=== PATIENT | male | born 1975 | race African-American/Black ===

== ENCOUNTER 2016-09-04 12:16 | Outpatient (CLI) | payer OTHER | END 2016-09-04 12:22 | disposition short-term general hospital (02) | LOC: AMB 12:16 | DX: R51 Headache (principal); M25.522 Pain in left elbow; W17.89XA Other fall from one level to another, initial encounter; Y92.63 Factory as the place of occurrence of the external cause | CPT/HCPCS: A0425; A0427 ==

== ENCOUNTER 2016-09-04 12:22 | Emergency (ER) | payer OTHER ==
[~2016-09-04] VITALS: Ht 182.9 cm; Wt 77.1 kg
[2016-09-04 13:40] LABS: PLATELET COUNT 267 K/uL (142-355)
[2016-09-04 13:49] LABS: POTASSIUM 3.8 mmol/L (3.6-5.2); SODIUM 136 mmol/L (136-145)
[2016-09-04 16:48] VITALS: BP 120/72; TEMP 98.8
== END 2016-09-04 16:49 | disposition home or self-care (01) ==
LOC: ED 12:22 → EDBD 12:22 → ED 16:49
PROVIDERS: Specialist
DX: S09.90XA Unspecified injury of head, initial encounter (principal); S00.03XA Contusion of scalp, initial encounter; S50.01XA Contusion of right elbow, initial encounter; W17.89XA Other fall from one level to another, initial encounter; Y92.89 Other specified places as the place of occurrence of the external cause
CPT/HCPCS: 80048; 81000; 85027; 96374; 99284; J1885